=== PATIENT | female | born 1990 | race Caucasian/White ===

== ENCOUNTER 2020-04-04 18:20 | Emergency (ER) | payer OTHER ==
[~2020-04-04] VITALS: Ht 165.1 cm; Wt 91.7 kg
[2020-04-04] MEDS ORDERED: birth control pill PO (18:25)
[2020-04-04] MEDS ORDERED: MULTCAP PO (18:25)
[2020-04-04] MEDS ORDERED: KETOROLAC 60MG 2ML VIAL IM ONE (19:30)
[2020-04-04] MEDS ORDERED: diazePAM 10 MG TAB PO ONE (19:30)
[2020-04-04] MEDS ORDERED: LIDOCAINE 5% (LIDODERM) PATCH TD ONE (19:30)
--- NOTE | 2020-04-04 20:32 | REPVR ---
PROCEDURE INFORMATION: Exam: CT Lumbar Spine Without Contrast Exam date and time: 04/04/2020 7:59 PM Age: 30 years old Clinical indication: Pain; Lumbago with sciatica; Right; Additional info: PT tender R sided radiating pain x months TECHNIQUE: Imaging protocol: Computed tomography images of the lumbar spine without contrast. Radiation optimization: All CT scans at this facility use at least one of these dose optimization techniques: automated exposure control; mA and/or kV adjustment per patient size (includes targeted exams where dose is matched to clinical indication); or iterative reconstruction. COMPARISON: No relevant prior studies available. FINDINGS: Vertebrae: No acute compression fracture in the lumbar spine. There is a probable Schmorl's node in the inferior endplate of T12. Normal alignment. Discs/Spinal canal/Neural foramina: No disc space narrowing. There is no spinal canal stenosis. There is no evidence of a disc herniation. There is no neural foraminal narrowing. Soft tissues: Unremarkable. IMPRESSION: Normal appearance of the lumbar spine. Specifically no evidence of neural compromise. No abnormality is identified to explain the patient's right sciatica. Electronically signed by: Shannan Coronado On 04/04/2020 20:32:12 PM
[2020-04-04] MEDS ORDERED: ASPE4PAD TOP (20:55)
[2020-04-04] MEDS ORDERED: ROBA750T4 PO (20:55)
[2020-04-04] MEDS ORDERED: NAPR-837 PO (20:55)
[2020-04-04] MEDS ORDERED: **NOTE PATIENT COMMENT** MISC XX SCH (21:00)
[2020-04-04 21:06] VITALS: BP 125/82
== END 2020-04-04 21:09 | disposition home or self-care (01) ==
LOC: M ED 18:20
DX: M54.5 Low back pain (principal); M62.830 Muscle spasm of back; R26.2 Difficulty in walking, not elsewhere classified; Z79.899 Other long term (current) drug therapy; Z79.3 Long term (current) use of hormonal contraceptives
CPT/HCPCS: 72131; 96372; 99283; J1885

== ENCOUNTER 2021-05-14 11:21 | Day surgery (SDC) | payer OTHER ==
[~2021-05-14] VITALS: Ht 165.1 cm; Wt 93.0 kg
[~2021-05-14 11:21] MED LIST: ASPE4PAD TOP; LR 1,000 ML IV ONE; MULTCAP PO; NAPR-837 PO; ROBA750T4 PO; birth control pill PO
[2021-05-14 11:58] LABS: HEMOGLOBIN 12.8 g/dl (12.0-15.5); MEAN CORPUSCULAR HEMOGLOBIN 30.3 pg (27.0-33.0); MEAN CORPUSCULAR HGB CONC 32.8 g/dl (32.0-36.5); MEAN CORPUSCULAR VOLUME 92.2 fl (80.0-96.0); PLATELET COUNT, AUTOMATED 216 10^3/uL (150-450); RED BLOOD COUNT 4.23 10^6/uL (4.00-5.40); WHITE BLOOD COUNT 7.3 10^3/uL (4.0-10.0)
[2021-05-14 12:45] LABS: BLOOD UREA NITROGEN 9 MG/DL (7-18); CALCIUM LEVEL 8.8 MG/DL (8.5-10.1); CARBON DIOXIDE LEVEL 25 MEQ/L (21-32); CHLORIDE LEVEL 108 MEQ/L (98-107); CREATININE FOR GFR 0.79 MG/DL (0.55-1.30); GLOMERULAR FILTRATION RATE > 60.0 (>60); GLUCOSE, FASTING 84 MG/DL (70-100); SODIUM LEVEL 140 MEQ/L (136-145)
[2021-05-14 13:06] LABS: HCG, SERUM QUALITATIVE NEGATIVE (NEGATIVE)
[2021-05-14] MEDS ORDERED: ONDANSETRON 4MG/2ML VIAL As Ordered ONE (13:11)
[2021-05-14] MEDS ORDERED: MIDAZOLAM INJ 2MG/2ML VIAL (J2250 PER 1MG) As Ordered ONE (13:11)
[2021-05-14] MEDS ORDERED: LIDOCAINE 2% 100MG/5ML SDV (FOR ANES.) As Ordered ONE (13:11)
[2021-05-14] MEDS ORDERED: HYDROmorphone HCL 2 MG/ML 1ML VIAL As Ordered ONE (13:11)
[2021-05-14] MEDS ORDERED: dexameTHASONE 4 MG/ML 1ML VIAL (J1100 PER 1MG) As Ordered ONE (13:11)
[2021-05-14] MEDS ORDERED: KETOROLAC 60MG 2ML VIAL As Ordered ONE (13:11)
[2021-05-14] MEDS ORDERED: fentaNYL 100 MCG/2 ML INJECTION (J3010) As Ordered ONE (13:11)
[2021-05-14] MEDS ORDERED: propofoL 200 MG/20 ML VIAL As Ordered ONE (13:12)
[2021-05-14] MEDS ORDERED: ROCURONIUM BROMIDE 50 MG/5 ML VIAL As Ordered ONE (13:12)
[2021-05-14] MEDS ORDERED: BUPIVACAINE HCL 0.5% 10ML VIAL As Ordered ONE (14:13)
[2021-05-14] MEDS ORDERED: ACETAMINOPHEN 650 MG SUPP As Ordered ONE (14:14)
[2021-05-14] MEDS ORDERED: SUGAMMADEX SODIUM 500 MG/5 ML VIAL (BRIDION) As Ordered ONE (14:57)
[2021-05-14] MEDS ORDERED: ONDANSETRON 4MG/2ML VIAL IV PRN (15:55)
[2021-05-14] MEDS ORDERED: oxyCODONE 5MG TAB PO PRN (15:55)
[2021-05-14] MEDS ORDERED: LR 1,000 ML IV SCH (15:55)
[2021-05-14] MEDS ORDERED: fentaNYL 100 MCG/2 ML INJECTION (J3010) IV PRN (15:55)
[2021-05-14 17:30] VITALS: BP 125/84
== END 2021-05-14 17:36 | disposition home or self-care (01) ==
LOC: M SDC 11:21
PROVIDERS: ATTEND Obstetrics & Gynecology
DX: Z20.3 Contact with and (suspected) exposure to rabies (principal)
CPT/HCPCS: 36415; 58661; 80048; 84703; 85027; 88302; J1100; J1170; J1885; J2250; J2405; J3010